=== PATIENT | female | born 1995 | race Caucasian/White ===

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

== ENCOUNTER 2020-02-20 13:39 | Emergency (ER) | payer MEDICAID ==
[~2020-02-20] VITALS: Ht 175.3 cm; Wt 91.2 kg
[2020-02-20 14:19] VITALS: BP 158/72
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
[2020-02-20 15:36] LABS: BASOPHILS # (AUTO) 0.1 K/uL (0.00-0.22); BASOPHILS % (AUTO) 0.7 % (0.0-2.0); HEMATOCRIT 36.7 % (36-48); HEMOGLOBIN 11.5 g/dL (12.0-16.0); LYMPHOCYTES # (AUTO) 1.4 K/uL (2.5-16.5); LYMPHOCYTES % (AUTO) 10.7 % (20.5-51.1); MEAN CORPUSCULAR HEMOGLOBIN 22 pg (27-31); MEAN CORPUSCULAR HGB CONC 31 g/dL (33-37); MONOCYTES # (AUTO) 1.7 K/uL (0.8-1.0); MONOCYTES % (AUTO) 13.3 % (1.7-9.3); NEUTROPHILS # (AUTO) 9.9 K/uL (1.8-7.7); NEUTROPHILS % (AUTO) 75.3 % (42.2-75.2); PLATELET COUNT (AUTO) 216 K/uL (140-450); RED BLOOD CELL COUNT(AUTO) 5.16 MIL/uL (4.20-5.40); RED CELL DISTRIBUTION WIDTH 16.5 % (11.6-13.7); WHITE BLOOD COUNT (AUTO) 13.2 K/uL (4.8-10.8)
[2020-02-20] MEDS: HYDROcodone/APAP 5/325 MG 1 TAB TAB PO ONE (15:36)
[2020-02-20] MEDS: ONDANSETRON 4 MG ODT PO ONE (15:36)
[2020-02-20 15:49] LABS: ALBUMIN 3.6 g/dL (3.4-5.0); ANION GAP 13.8 (8-16); CREATININE 0.7 mg/dL (0.6-1.3); POTASSIUM 3.8 mmol/L (3.5-5.1); TOTAL BILIRUBIN 0.4 mg/dL (0.0-1.0)
[2020-02-20] MEDS: NACL 0.9% 1,000 ML IV ONE (16:21)
[2020-02-20 16:25] LABS: APPEARANCE,URINE HAZY (CLEAR); BILIRUBIN,URINE NEGATIVE (NEGATIVE); BLOOD, URINE TRACE-I (NEGATIVE); COLOR,URINE YELLOW (YELLOW); LEUKOCYTE ESTERASE ,URINE 1+ (NEGATIVE); NITRITE, URINE POSITIVE (NEGATIVE); PH,URINE 6.5 (5.0-9.0); UGLUCOSE NEGATIVE (NEGATIVE)
[2020-02-20] MEDS ORDERED: cefTRIAXone 1,000 MG VIAL ONE (16:36)
[2020-02-20 16:49] LABS: WBC,URINE 20-60 /HPF (0-5)
[2020-02-20 17:13] VITALS: BP 132/69
--- NOTE | 2020-02-20 17:13 | NUR ---
Patient discharged with v/s stable. Written and verbal after care instructions given and explained. Patient alert, oriented and verbalized understanding of instructions. Ambulatory with steady gait. All questions addressed prior to discharge. ID band removed. Patient advised to follow up with PMD. Rx of CEPHALEXIN, TYLENOL given. Patient educated on indication of medication including possible reaction and side effects. Opportunity to ask questions provided and answered.
--- NOTE | 2020-02-23 16:57 | NUR ---
LATE ENTRY -- NORMAL SALINE ENDED 02/20/20 AT 1721 AND ROCEPHIN ENDED AT 1710
== END 2020-02-20 17:13 | disposition home or self-care (01) ==
LOC: MED 13:39
DX: N12 Tubulo-interstitial nephritis, not specified as acute or chronic (principal)
CPT/HCPCS: 36415; 80053; 81001; 81025; 83690; 85025; 87086; 96365; 99284; J0696; J7030; Q0162

== ENCOUNTER 2020-02-23 17:06 | Emergency (ER) | payer MEDICAID ==
[~2020-02-23] VITALS: Ht 175.3 cm; Wt 86.2 kg
[2020-02-23 17:24] VITALS: BP 137/85
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
--- NOTE | 2020-02-23 17:30 | NUR ---
BIB SELF C/O RLQ ABD PAIN X 2 DAYS.SEEN HERE FOR PYELONEPHRITIS: RIGHT FLANK PAIN 02/20/20. ABD SOFT, NO TENDERNESS AT THIS TIME.
[2020-02-23 18:02] LABS: BASOPHILS # (AUTO) 0.1 K/uL (0.00-0.22); BASOPHILS % (AUTO) 1.1 % (0.0-2.0); EOSINOPHILS % (AUTO) 0.5 % (0.0-4.0); HEMATOCRIT 37.1 % (36-48); HEMOGLOBIN 11.7 g/dL (12.0-16.0); LYMPHOCYTES # (AUTO) 2.6 K/uL (2.5-16.5); LYMPHOCYTES % (AUTO) 25.8 % (20.5-51.1); MEAN CORPUSCULAR HEMOGLOBIN 22 pg (27-31); MEAN CORPUSCULAR HGB CONC 32 g/dL (33-37); MONOCYTES # (AUTO) 0.8 K/uL (0.8-1.0); MONOCYTES % (AUTO) 7.8 % (1.7-9.3); NEUTROPHILS # (AUTO) 6.6 K/uL (1.8-7.7); NEUTROPHILS % (AUTO) 64.8 % (42.2-75.2); PLATELET COUNT (AUTO) 297 K/uL (140-450); RED BLOOD CELL COUNT(AUTO) 5.22 MIL/uL (4.20-5.40); RED CELL DISTRIBUTION WIDTH 16.2 % (11.6-13.7); WHITE BLOOD COUNT (AUTO) 10.2 K/uL (4.8-10.8)
[2020-02-23 18:11] LABS: APPEARANCE,URINE CLEAR (CLEAR); BILIRUBIN,URINE NEGATIVE (NEGATIVE); BLOOD, URINE NEGATIVE (NEGATIVE); COLOR,URINE YELLOW (YELLOW); LEUKOCYTE ESTERASE ,URINE NEGATIVE (NEGATIVE); NITRITE, URINE NEGATIVE (NEGATIVE); PH,URINE 7.5 (5.0-9.0); UGLUCOSE NEGATIVE (NEGATIVE)
[2020-02-23 18:18] LABS: ALBUMIN 3.8 g/dL (3.4-5.0); ANION GAP 11.3 (8-16); CARBON DIOXIDE 28.1 mmol/L (21-32); CREATININE 0.7 mg/dL (0.6-1.3); POTASSIUM 3.4 mmol/L (3.5-5.1); TOTAL BILIRUBIN 0.2 mg/dL (0.0-1.0)
[2020-02-23 19:11] VITALS: BP 137/85
--- NOTE | 2020-02-23 19:11 | NUR ---
Patient discharged with v/s stable. Written and verbal after care instructions given and explained. Patient alert, oriented and verbalized understanding of instructions. Ambulatory with steady gait. All questions addressed prior to discharge. ID band removed. Patient advised to follow up with PMD. Rx of ZOFRAN & NORCO given. Patient educated on indication of medication including possible reaction and side effects. Opportunity to ask questions provided and answered.
== END 2020-02-23 19:11 | disposition home or self-care (01) ==
LOC: MED 17:06
DX: R10.9 Unspecified abdominal pain (principal)
CPT/HCPCS: 36415; 80053; 81003; 81025; 83690; 85025; 99284